=== PATIENT | female | born 1970 | race Caucasian/White ===

== ENCOUNTER 2018-11-29 08:12 | Emergency (ER) | payer SELFPAY ==
[2018-11-29 08:13] VITALS: BP 124/85; PULSE 82; RESP 18; TEMP 36.6; O2SAT 100; BMI 21.4
--- NOTE | 2018-11-29 08:29 | ED.VIS.GEN ---
History of Present Illness Chief Complaint: Upper Extremity Injury Informant: Patient Onset: Weeks, Month(s) Context: Gradual Onset Timing: Intermittent Current Severity: Moderate Maximum Severity: Moderate Narrative: The patient presents to the emergency department with pain in bilateral arms and wrists. She states she has had it for almost 20 years. She states that she was initially diagnosed with carpal tunnel. She does a lot of work with her hands. She loads and moves boxes at work. She states over the past month, she began to have more pain towards her bicep. She states that she will also get tingling in her left third fourth and fifth finger and they were normal spasm. She is been trying ibuprofen with some improvement. She is also been wearing her braces. She denies any new trauma. She denies any fevers or chills. She states that she is not really seen anyone for this since it is worsened. Prior similar symptoms: Yes Recent Illness/Hospitalization: No Past Medical History - Allergies and Home Meds Allergies/Adverse Reactions: Allergies acetaminophen [From Percocet] Allergy (Verified 11/29/18 08:17) Hives hydromorphone [From Dilaudid] Allergy (Verified 11/29/18 08:17) Shortness of breath oxycodone [From Percocet] Allergy (Verified 11/29/18 08:17) Hives Penicillins Allergy (Verified 11/29/18 08:17) Hives codeine Adverse Reaction (Verified 11/29/18 08:17) Vomiting morphine Adverse Reaction (Verified 11/29/18 08:17) Low blood pressure Primary Care Physician: NOT,DEFINED [Primary Care Provider] - Prior records reviewed: Yes Past Medical History: None Lives: With Family Smoking Status: Current some day smoker Review of Systems General: Denies: Chills, Fever, Sweats Eyes: Denies: Visual changes - bilaterally, Diplopia ENT: Denies: Rhinorrhea, Sore throat Cardiovascular: Denies: Chest pain, Palpitations Respiratory: Denies: Dyspnea, Cough, Dyspnea on exertion Gastrointestinal: Denies: Abdominal pain, Nausea, Vomiting, Diarrhea, Melena, Hematochezia Genitourinary: Denies: Dysuria, Hematuria, Frequency Musculoskeletal: Reports: Myalgias. Denies: Back pain, Extremity Pain Skin: Denies: Rash, Wounds Neurological: Denies: Headache, Weakness, Numbness Physical Exam Vital Signs/Narrative: Vital Signs Temp Pulse Resp BP Pulse Ox 11/29/18 08:13 97.9 F 82 18 124/85 H 100 Inital Vital Signs reviewed: Yes General: Well nourished, Well developed, No Acute Distress Head: Normocephalic, Atraumatic Eyes: Perrl, EOMI ENT: Moist mucous membranes, No rhinorrhea Neck: Supple, Nontender Cardiovascular: Regular rate, Regular rhythm, No murmurs Respiratory: No distress, CTA bilaterally, Chest nontender Abdomen: Soft, Nontender, Nondistended, Normal bowel sounds Back: Nontender, Normal Inspection Extremities: Nontender, No edema Skin: Normal color, No rash Neurological: Alert, Oriented x3, Cranial nerves II-XII grossly intact, Normal Strength, Normal Sensation Psychological: Normal affect, Normal Mood Diagnostic/Tx/Re-eval - Medical Decision Making The patient really has no reproducible tenderness. She has normal pulses in bilateral upper extremities. Her compartments are soft. Clinically, her symptoms do seem most consistent with ulnar nerve entrapment on the left arm. She will get spasm and almost clawing of the third fourth and fifth digit. There is no weakness. There is no trauma. There is no erythema. At this point, I do feel that the best plan of care will be given outpatient orthopedic follow-up as she is likely going to need EMG and further work-up. The patient will be kept on anti-inflammatories. She will be discharged home. Impression 1. Left ulnar nerve entrapment ED Disposition - Plan for ED Patient: Instructions: Ulnar Nerve Palsy Prescriptions: Naproxen [Naprosyn] 500 mg PO BID PRN #20 tab Prescription Printed Referrals: Eber Erwin DO [STAFF PHYSICIAN] - As soon as possible
== END 2018-11-29 08:51 | disposition home or self-care (01) ==
LOC: ED 08:44
PROVIDERS: Emergency Provider Emergency Medicine
DX: G56.22 Lesion of ulnar nerve, left upper limb (principal); Z88.0 Allergy status to penicillin; Z88.5 Allergy status to narcotic agent
CPT/HCPCS: 99282

== ENCOUNTER 2024-05-01 05:23 | Emergency (ER) | payer BC, SELFPAY ==
[2024-05-01 05:24] VITALS: BP 145/89; PULSE 82; RESP 18; TEMP 36.7; O2SAT 99; BMI 23.8
--- NOTE | 2024-05-01 05:46 | RAD_ITS ---
PROCEDURE: CHEST PA AND LATERAL REASON FOR EXAM: Cough. Fever. Sore throat. Shortness of breath TECHNIQUE: Frontal and lateral views of the chest. COMPARISON: None. FINDINGS: Lungs are well aerated. No focal airspace consolidation, pneumothorax or pleural effusion is seen. Remaining lung markings otherwise appears clear. Heart size and great vessels are within normal limits. The osseous thorax appears intact. RAD/Chest PA and Lateral IMPRESSION: No acute cardiopulmonary process identified. Reading Location: [facility]
[2024-05-01] MEDS: Benzonatate 100 MG Capsule 200 MG PO (05:53)
[2024-05-01] MEDS: Lidocaine 2% Viscous15 ML UDC 10 ML PO (05:53)
[2024-05-01] MEDS: dexAMETHasone 10 MG/ML Vial PO.IVFORM (05:53)
--- NOTE | 2024-05-01 06:53 | EX.ED.DYSGE1 ---
HPI History of Present Illness Chief Complaint: General Illness Informant: patient Narrative Narrative: Patient is a 54-year-old female with past medical history of migraine headache. She states has been multiple at work sick. She reports over the past 2 to 3 days she has had headache muscle aches fatigue subjective fevers and chills congestion cough and sore throat. She states this evening she was at work and she was having such bad coughing spells that her boss recommended she come to the hospital for further evaluation. Patient denies any history of lung disorders such as COPD asthma or emphysema. [facility] Medical History (Updated 05/02/24 @ 22:[address] Gurmeet Waters, DO) Migraine Home Medications ?Medication ?Instructions ?Recorded ?Last Taken ?Type NK 05/01/24 Unknown History azelastine 137 mcg (0.1 %) nasal 2 spray intranasal BID #30 mL 05/01/24 Unknown Rx spray benzonatate 200 mg capsule 200 mg PO TID PRN cough #30 caps 05/01/24 Unknown Rx oseltamivir 75 mg capsule (Tamiflu) 75 mg PO BID 5 days #10 caps 05/01/24 Unknown Rx prednisone 20 mg tablet 40 mg (2 x 20 mg) PO DAILY 5 days 05/01/24 Unknown Rx #10 tabs Allergy/AdvReac Type Severity Reaction Status Date / Time acetaminophen (From Percocet) Allergy Hives Verified 05/01/24 05:24 hydromorphone (From Dilaudid) Allergy Shortness Verified 05/01/24 05:24 of breath oxycodone (From Percocet) Allergy Hives Verified 05/01/24 05:24 Penicillins Allergy Hives Verified 05/01/24 05:24 codeine AdvReac Vomiting Verified 05/01/24 05:24 morphine AdvReac Low blood Verified 05/01/24 05:24 pressure Family History no significant family his Surgical History (Updated 05/01/24 @ 05:26 by Fawad Rausch) H/O bursectomy Social History Smoking Status: Former smoker ROS ROS ED Constitutional Constitutional ED: Reports chills, fever(s) and subjective Eyes Eyes: Denies change in vision ENT ENT ED: Reports rhinorrhea and sore throat Respiratory/Chest Respiratory/Chest: Reports cough and dyspnea Gastrointestinal Gastrointestinal: Denies abdominal pain, diarrhea, nausea or vomiting Musculoskeletal Musculoskeletal: Reports myalgias Integumentary Denies rash Neurologic Neurologic: Reports headache(s) Allergic/Immunologic Allergic/Immunologic ED: Denies mouth swelling or tongue swelling EXAM Physical Exam Const Vital Signs: 05/01/24 05:24 05/01/24 05:24 Temperature 98.0 F Temperature Source Oral Pulse Rate 82 Respiratory Rate 18 Respiratory Effort Normal Respiratory Pattern Normal Blood Pressure 145/89 H Blood Pressure Mean 107 Pulse Ox 99 Oxygen Delivery Method Room Air Positive well nourished and well developed General Appearance ED: well developed; Negative for pallor HEENT HEENT Narrative: Nasal mucosa is hyperemic and boggy Bilateral TMs are retracted but show no secondary findings to suggest infection There is cobblestoning noted in the posterior pharynx consistent with sinus drainage without airway edema or compromise; no tonsillar hypertrophy. No exudate. No trismus change in voice or difficulty with secretions Eyes PERRL and EOMs intact bilaterally General Eye ED: Negative for scleral icterus Neck supple and no JVD Neck Narrative: Positive anterior cervical lymphadenopathy is noted No nuchal rigidity or meningeal signs Chest Wall palpation of chest normal Resp normal respiratory effort Resp Narrative: Breath sounds are diminished throughout with faint rhonchi in the bilateral bases but no signs of respiratory distress Cardio regular rate and regular rhythm GI normal to inspection, nondistended, normoactive bowel sounds, non-tender, non-distended and no masses Auscultation: normoactive bowel sounds Palpation: soft Extremity normal to inspection Extremity Narrative: No asymmetric edema no pitting edema negative Homans' sign bilaterally Neuro oriented x3, CN's II-XII intact bilaterally and no sensory deficits noted Sensorium / Orientation: alert Motor Exam: strength 5/5 throughout Psych mental status grossly normal Skin no rashes or lesions noted and no wounds General Skin Exam: Negative for jaundice or pallor MDM MDM MDM Narrative Medical decision making narrative: Patient arrived to the ER with stable vitals and in no acute distress. Constellation of symptoms is concerning for COVID versus influenza versus RSV. Patient's constellation of symptoms could also be secondary to pneumonia. She does have sore throat but this appears to be related to drainage there is no findings in the posterior pharynx to suggest strep pharyngitis or peritonsillar abscess or epiglottitis. Therefore this time a chest x-ray and viral swab will be obtained. Chest x-ray revealed no acute lung pathology and viral swab was positive for influenza A. The flu does correlate with her physical exam and symptoms. At this time vitals are stable she is not in respiratory distress she is not requiring supplemental oxygen and therefore there is no need for further workup and she is otherwise safe for discharge with symptomatic care. History & Record Review Discussion w/independent historian: Patient Radiography Diagnostic Testing: Clinical Impression(s) from Imaging Studies Chest X-Ray 05/01/24 05:46 IMPRESSION: No acute cardiopulmonary process identified. Reading [facility] Chest x-ray as interpreted by the emergency medicine physician reveals no acute infiltrate pneumothorax or pleural effusion Discharge Plan Triage Chief Complaint: General Illness ED Provider: Gurmeet Waters Dx/Rx/DC Orders Clinical Impression: Influenza A, History of migraine headaches Instructions: Lymphadenopathy, ED Influenza (Adult) Prescriptions: New oseltamivir [Tamiflu] 75 mg capsule 75 mg PO BID 5 Days Qty: 10 0RF prednisone 20 mg tablet 40 mg PO DAILY 5 Days Qty: 10 0RF azelastine 137 mcg (0.1 %) spray,non-aerosol 2 spray intranasal BID Qty: 30 0RF Rx Instructions: administer into each nostril benzonatate 200 mg capsule 200 mg PO TID PRN (Reason: cough) Qty: 30 0RF No Action NK Stand Alone Forms: ED Work / School Excuse Primary Care Provider: Care Physician,No Primary Referrals: Fei Silverman MD [Med Staff - Active Staff] - Care Physician,No Primary [Primary Care Provider] - Activity Restrictions/Additional Instructions: You tested positive for influenza. This is a virus that will last anywhere from 5 days to 2 weeks with the average being 7 days. Take the prescribed medication as directed to help control your symptoms. If you have any further concerns please return to the ER for repeat evaluation Print Language: Romanian Disposition Disposition: Home, Self Care Discharge Date/Time: 05/01/24 07:04
== END 2024-05-01 07:04 | disposition home or self-care (01) ==
PROVIDERS: Emergency Provider Emergency Medicine; Visit Provider Emergency Medicine
DX: J10.1 Influenza due to other identified influenza virus with other respiratory manifestations (principal); Z87.891 Personal history of nicotine dependence; R51.9 Headache, unspecified
CPT/HCPCS: 71046; 87631; 99283